=== PATIENT | female | born 1940 | race Caucasian/White ===

== ENCOUNTER 2024-11-16 10:10 | Outpatient (CLI) | payer MEDICARE, SELFPAY ==
--- NOTE | ~2024-11-16 | XR_ITS ---
3 VIEWS LUMBAR SPINE Ordering provider: Anyi Dasilva NP History: . M54.16 - Radiculopathy, lumbar region . Comparison: None. FINDINGS: VERTEBRAL BODIES:Compression fracture with loss of height of about 70% is seen in L1 which is most li ammy chronic. Postoperative changes at the level of L4-L5 with spondylolisthesis.. DISK SPACES: Narrowing of the disc spaces in the lower thoracic area. Narrowing of the disc L2-3 and L3-L4. Disc spacers seen at the level of L4-L5. SOFT TISSUES: Calcification in the left side of the pelvis is seen. Atherosclerotic changes of the ao rta. IMPRESSION: Compression fracture of L1 is most likely chronic. MRI evaluation advised. Spondylolisthesis at the level of L4-L5. Multilevel degenerative disc disease with disc spacer at the level of L4-L5. Reviewed, dictated and finalized at location A.
== END 2024-11-16 10:11 | disposition home or self-care (01) ==
LOC: GOSHIMG 10:11
PROVIDERS: PCP Nurse Practitioner; Visit Provider Nurse Practitioner
DX: M54.16 Radiculopathy, lumbar region (principal); M51.369 Other intervertebral disc degeneration, lumbar region without mention of lumbar back pain or lower extremity pain; S32.010A Wedge compression fracture of first lumbar vertebra, initial encounter for closed fracture; X58.XXXA Exposure to other specified factors, initial encounter
CPT/HCPCS: 72110

== ENCOUNTER 2024-11-16 10:44 | Outpatient (CLI) | payer MEDICARE, SELFPAY ==
--- OUTSIDE RECORDS SUMMARY | 2024-11-16 10:47 | XMS_ITS | Continuity of Care Document ---
Author Organization [facility] Address [address] [place] [address] Phone Care Team Providers Care Home Companion Name Role Phone Jorge L DELGADILLO MD, Sujit Unavailable Unavail able Allergies, Adverse Reactions, Alerts Substance Reaction Status Criticality No Known Allergies Active No Inform ation Procedures Procedure Date X-ray exam finger(s), minimum 2 views Office/outpatient visit,[facility] 2021 Thumb Spica Stephens OTS Advance Directives Directive Yes / No Effective Date File Name No Information Encounters Encounter Description Practice Location Reason(s) For Visit Diagnoses Date Provider Providers Copied on Encounter Office/outpa [facility]ient visit,[facility], [address], [place], [place], [id number], [place] tel:[phone] [facility] Right hand (chief complaint) Pain in right finger(s)Unila teral primary osteoarthritis of first carpometacarpa l joint, right hand 2 Jorge L Beckett. [address], [address], [place], [place], [id number], [place]. tel:[phone] Referring Provider: Austen Chowdary, [address], [place], [address]. tel:[phone] Family History Family Member Type Diagnosis Age At Onset Mother Problem (finding) Heart Disease Sister Problem (finding) Cancer, unknown Payers Payer name Insurance type Covered constitution party ID Authoriza tion(s) [facility] [place] [id number] Social History Type Description Quantity Date Captured Comments Alcohol Use Details Unknown Caffeine Use Details Unknown Tobacco Use Status No Information Smoking Status Never smoker Non-Smoking Tobacco Use Details : No Details Available : No Details Available Sex Female Vital Signs Date / Time: Height Weight BMI Pulse Rate Blood Pressure Temperature Respiratory Rate Body Surface Area Head Circumference Head Circ. Percentile Wt./Jamel. Percentile BMI percentile Pulse Ox Inhaled Ox 9:37 AM 63.00 in 55.792 kg (123.00 lbs) 21.7 9 kg/m bober (2) Chief Complaint And Reason For Visit From encounter dated '11/04/2021 09:35'. Right hand (chief complaint). Description: Arleen presents to the office today on November 04, 2021. She is here because of pain in the right hand. She reports that she has pain in the right hand, but the pain radiates into the right thumb and right wrist. The pain actually seems to localize to the base of the right thumb. Arleen does not recall any specific injury. She reports that the pain has been present for about 2 months. The pain is worse with activities such as opening cans or lifting things. Arleen does have a copper glove for her right hand. This seems to help some. Arleen tells me that she had a carpal tunnel release surgery in the right hand many years ago. She also tells me that she has arthritis in her hand. She describes her pain as aching and occasional. Arleen is here today for further evaluation and treatment of her right hand pain. Reason For Referral Reason For Referral No Information Plan Of Treatment Date Type Action Status Referral Ordered: X-ray exam finger(s), minimum 2 views RT thumb ordered History Of Present Illness Encounter Date Complaint History Of Prese nt Illness Right hand Arleen presents to the office today on November 04, 2021. She is here because of pain in the right hand. She reports that she has pain in the right hand, but the pain radiates into the right thumb and right wrist. The pain actually seems to localize to the base of the right thumb. Arleen does not recall any specific injury. She reports that the pain has been present for about 2 months. The pain is worse with activities such as opening cans or lifting things. Arleen does have a copper glove for her right hand. This seems to help some. Arleen tells me that she had a carpal tunnel release surgery in the right hand many years ago. She also tells me that she has arthritis in her hand. She describes her pain as aching and occasional. Arleen is here today for further evaluation and treatment of her right hand pain. Functional Status Date Functional Assessmen t No Information Instructions Date Instruction Additional Infor mation No Information Assessments Type Assessment Date assessment Pain in right finger(s) 022 assessment Unilateral primary o steoarthritis of first carpometacarpal joint, right hand impression I gave Arleen a Dunne ta Kaity Thumb Spica Splint today for the right thumb carpometacarpal joint osteoarthritis. I showed her how to apply the splint. I showed her that there were both flexible and rigid metal strips inside the splint, and she may add or remove the metal strips as desired for comfort and function. The purpose of the splint is to provide comfort, support, and protection over the next 6 weeks, and beyond as needed. The splint should improve function by immobilizing the carpometacarpal joint at the base of the thumb, minimizing bone on bone inflammation, thereby reducing pain and allowing for increased and improved use of the thumb and hand. Arleen will use the splint when she is experiencing pain in the right thumb, hand, or wrist, or when she is going to be participating in an activity that she expects to cause pain. The splint is provided as a permanent issue. Arleen may advance her activities as tolerated. She may follow up with me as needed. Arleen may also call with any questions or concerns Patient Care Teams Name Effective Dates (start - stop) Status Members No Information
--- OUTSIDE RECORDS SUMMARY | 2024-11-16 10:47 | XMS_ITS ---
Author Organization [facility] Address [address] [place] [address] Phone Care Team Providers Care Numerical Analysis Group Manager Name Role Phone Austen Munoz MD Primary Care Provider + Lory Aguillon MD Unavailable Active Problems Problem Noted Date Diagnosed Date Acute pain of left knee 08/02/2023 Mass of upper outer quadrant of left breast 06/10 Compression fracture of lumb ar vertebra with routine healing 04/24/2022 Age-related osteoporosis wit hout current pathological fracture 04/29/2020 Spinal stenosis of lumbar region 03/08/2017 Breast cancer 12/31/2010 Current Treatment and Therapy Plans No current plan information found. Past Treatment and Therapy Plans No past plan information found. Lifetime Dose Tracking * Chemical Lifetime Dose Automatic Entry Manual Entr y Fluoro Time 0.383 minutes 0.383 minutes 0 minutes Air kerma at the reference point (Ka,r) 2.66 mGy 2 .66 mGy 0 mGy Resolved Problems Problem Noted Date Diagnosed Date Resolved Date Body mass index (BMI) 23.0-23.9, adult 01/29/2017 04/17/2024
--- OUTSIDE RECORDS SUMMARY | 2024-11-16 10:47 | XMS_ITS | Encounter Summary ---
Author Organization [facility] Address [address] [place] [address] Care Team Providers Care Photo Machine Operator Name Role Phone Austen Munoz MD Primary Care Provider [phone] Edy Hart MD Unavailable [phone] Encounter Details Date Type Department Care Team (Late st Contact Info) Description 01/18/[address] 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 Gender Identity Not on file Sexual Orientation Not on file documented as of this encounter Plan of Treatment Not on file documented as of this encounter Procedures Procedure Name Priority Date/Time Associated Diagnosis Comments DERMATOPATHOLOGY Routine 01/17/2019 12:0 0 AM CDT documented in this encounter Results * DERMATOPATHOLOGY (01/17/2019 12:00 AM CDT) Case Report Dermatopathology Report Case: [id number] Authorizing Provider: Lance Silveira MD Collected: 01/17/2019 12:00 AM Ordering Location: [facility] DermPath Lab Received: 01/18/2019 12:53 PM Pathologist: Nina Patino MD Specimen: Skin, left superior forehead 12:24 PM CDT DERMATOPATHOLOGY LABORATORY Final Diagnosis Specimen A. SKIN, left superior forehead: BASAL CELL CARCINOMA, NODULAR TYPE (C44.319) NOT PRESENT AT SAMPLED MARGIN 12:24 PM CDT DERMATOPATHOLOGY LABORATORY at 1223 CDT Clinical History R/O BCC. 12:24 PM CDT DERMATOPATHOLOGY LABORATORY Gross Description Specimen A: Received is one formalin filled container labeled with the patient's name and designated left superior forehead. The specimen consists of a punch excision measuring [id number], bisected. The epidermal surface consists of a centrally located [id number] papule. The margin is inked green. Jar 0. 12:24 PM CDT DERMATOPATHOLOGY LABORATORY Microscopic Description Specimen A. SKIN, left superior forehead: Within the dermis there are aggregates of basaloid cells with a high nuclear to cytoplasmic ratio and peripheral palisading. This lesion is not present at the sampled margin of the specimen. 12:24 PM CDT DERMATOPATHOLOGY LABORATORY Disclaimer An external and internal positive and negative controls are appropriate for the histochemical, immunohistochemical and immunofluorescence stain(s) in this case (if any), except where stated explicitly. The performance characteristics of the stain(s) cited in this report were developed and its performance characteristic determined by the Dermatopathology Laboratory at [facility], directed by Dr. Elli Greco. These tests need not be, and therefore are not, approved by the [place] Food and Drug Administration. The tests are used for clinical purposes. Billing Codes Specimen Charges Stain Charges 24971 1 12:24 PM CDT DERMATOPATHOLOGY LABORATORY Embedded Images 12:24 PM CDT DERMATOPATHOLOGY LABORATORY Pathology/Cytolog y TISSUE SPECIMEN FROM SKIN / Unknown 01/17/2019 01/18/2019 12:53 PM CDT Lance Silveira MD LAB - PATHOLOGY/CYTOLOGY ORD ERABLES Final Result DERMATOPATHOLOGY LABORATORY [facility] - Department of Dermatology [address]th [place] [address], [facility] [phone] documented in this encounter Visit Diagnoses Not on filedocumented in this encounter Care Teams Photo Machine Operator Relationship Specialty Start Date End Date Austen Munoz MD [address] [facility] [address], [place] [id number] PCP - General 10/10/08 Edy Hart MD [address] [place] [address] Obstetrics and Gynecology 01/14/23 documented as of this encounter
--- OUTSIDE RECORDS SUMMARY | 2024-11-16 10:47 | XMS_ITS | Referral Summary ---
Author Organization [facility] Address [address] [place] [address] Phone Care Team Providers Care Mussel Opener Name Role Phone Austen Munoz MD Primary Care Provider + Lory Aguillon MD Unavailable Encounters Date Type Department Care Team Description 09/13/2024 Telephone [facility] Primary Care at [facility] [address], [place] [address] Austen Munoz MD from Last 3 Months Allergies No known active allergies Medications HYDROcodone-acet aminophen (NORCO) 5-325 mg per tabletIndication s:Pain Take 1 tablet by mouth every 6 (six) hours as needed for pain 30 tablet 10/15/2023 Active alendronate (FOSAMAX) 70 mg tablet Take 1 tablet (70 mg total) by mouth every 7 days 12 tablet 3 12/13/2023 Active Active Problems Problem Noted Date Diagnosed Date Acute pain of left knee 08/02/2023 Mass of upper outer quadrant of left breast 06/10 Compression fracture of lumb ar vertebra with routine healing 04/24/2022 Age-related osteoporosis wit hout current pathological fracture 04/29/2020 Spinal stenosis of lumbar region 03/08/2017 Breast cancer 12/31/2010 Resolved Problems Problem Noted Date Diagnosed Date Resolved Date Body mass index (BMI) 23.0-23.9, adult 01/29/2017 04/17/2024 Immunizations Immunization Administration Dates Next Due COVID-19 mRNA ([employer]) 0.3 m L (30 mcg) vaccine (12 years and up) 01/27/2023 Influenza, Quad, Adjuvantate d, Intramuscular 01/27/2023 Influenza, Quadrivalent, Hig h Dose, Preservative Free, Intrr 02/19/2022,02/11/2021,02/05/2020,03/02,02/10/2016 Influenza, Trivalent, High D ose, Split, Preservative Free, Intramuscular 02/07/2019,01/25/2018,03/02/2017,02/09 Influenza, Trivalent, IM (MDV) 4,02/22/2013,04/12/2012,01/16 Influenza, Trivalent, Preser vative Free, Intramuscular 02/25/2015 Influenza, Unspecified 02/25/2024,02/05/2020, alaTest SARS-CoV-2 Monovalent Vaccination (12+ Yrs) PURPLE 01/29/2021,09/08/2020,08/12/2020,07/28 Pneumococcal Conjugate PCV 13 03/08/2017 Pneumococcal Polysaccharide PPV23 03/28/2018,05/2006 Social History Tobacco Use Types Packs/Day Years Used Date Smoking Tobacco: Never Smokeless Tobacco: Never Tobacco Cessation:Counseling Given: Not Answered Alcohol Use Standard Drinks/Week Comments Yes 0 (1 standard drink = 0.6 oz pur e alcohol) AUDIT-C Answer Date Recorded Q1: How often do you have a drink containing alc ohol? Monthly or less 03/11/2022 Q2: How many drinks containi ng alcohol do you have on a typical day when you are drinking? 1 or 2 03/11/2022 Frequency of Binge Drinking Not on file 06/2021 PHQ-2 Answer Date Recorded PHQ-2 Total Score (If total score is 3 or more points, staff should administer the PHQ-9) 0 04/11/2024 Personal Safety Answer Date Recorded Have you ever been in or are you currently in a harmful physical or emotional relationship or is someone making you feel afraid or unsafe? Denies 07/29/2023 Comments Unknown Sex and Gender Information Value Date Recorded Sex Assigned at Not on file Legal Sex Female 3:56 AM ROLL TENSION TESTER Gender Identity Not on file Sexual Orientation Not on file Occupation Industry Job Start Date Job End Date retired Not on file Not on file Not on file Last Filed Vital Signs Vital Sign Reading Time Taken Comments Blood Pressure 102/70 04/17/2024 10:03 AM ROLL TENSION TESTER Pulse 100 04/17/2024 10:03 AM ROLL TENSION TESTER Temperature 36.7 C (98 F) 07/29/2023 9:56 AM CDT Respiratory Rate 18 07/29/2023 3:00 PM CDT Oxygen Saturation 97% 04/17/2024 10:03 AM ROLL TENSION TESTER Inhaled Oxygen Concentration - - Weight 49.4 kg (109 lb) 04/17/2024 10:03 AM ROLL TENSION TESTER Height 157.5 cm (5' 2) 04/17/2024 10:03 AM ROLL TENSION TESTER Body Mass Index 19.94 04/17/2024 10:03 AM ROLL TENSION TESTER Plan of Treatment Not on file Goals Goal Patient Goal Type Associated Problems Recent Progress Patient-Stated? Author CCM Chronic Pain Care Plan Chronic Care Management On track(2021 10:26 AM CDT) No Kelley Vazquez RN Note: Problem: Chronic Pain Goals: 1. Minimize further functional decline 2. Maximize quality of life 3. Control pain Strategies: - Activity/exercise program recommendation - Conservative stepwise pain medicine strategy with multi-disciplinary approach - Recommend healthy lifestyle strategies and compensatory methods as needed Procedures Procedure Name Priority Date/Time Associated Diagnosis Comments DEXA AXIAL SKELETON BONE DENSITY 1 OR MORE SITES Schedule Routine, Read Routine (OP Routine) 06/01/2023 from Last 3 Months or Most Recently Relevant to Health Maintenance Results * Dexa Axial Skeleton Bone Density 1 or 2 Site (06/01/2023) Anatomical Region Laterality Modality Body N/A Radiographic Sindy ging Historical Provider MD [facility]WK DXA PROCEDURES Final Result from Last 3 Months or Most Recently Relevant to Health Maintenance Insurance Member Subscriber Plan / Payer ( fective 2019-Present) Name:Arleen Hernandez Relation to Subscriber:Self Name:Arleen Hernandez Payer ID:[id number] (NAIC) Type:MEDICARE RISK OTHER Address: [address] [place] [id number] Advance Directives For more information, please contact: [phone] Documents on File Type Date Recorded Patient [address] Magistrate Expl anation ADVANCE DIRECTIVE 01/18/2017 Advance Di rective Checklist Care Teams Mussel Opener Relationship Specialty Start Date End Date Austen Munoz MD [address] [address] PCP - General 02/10/16 Lory Aguillon MD [address] [address] Anesthesiologist Pain Management 02/04/22
--- OUTSIDE RECORDS SUMMARY | 2024-11-16 10:47 | XMS_ITS | Clinical Summary ---
Author Organization [facility] Address [address] [place] [address] Phone Care Team Providers Care Conveyor Attendant Name Role Phone Austen Munoz MD Primary Care Provider + Lory Aguillon MD Unavailable Allergies No known active allergies Medications HYDROcodone-acet [...] mass index (BMI) 23.0-23.9, adult 01/29/2017 04/17/2024 Encounters Date Type Department Care Team Description 09/13/2024 Telephone [facility] Primary Care at [facility] [address] [address] Austen Munoz MD from Last 3 Months Immunizations Immunization Administration Dates Next Due COVID-19 mRNA ([employer]) 0.3 m L (30 mcg) vaccine (12 years and up) 01/27/2023 Influenza, Quad, Adjuvantate d, Intramuscular 01/27/2023 Influenza, Quadrivalent, Hig h Dose, Preservative Free, Intrr 02/19/2022,02/11/2021,02/05/2020,03/02,02/10/2016 Influenza, Trivalent, High D ose, Split, Preservative Free, Intramuscular 02/07/2019,01/25/2018,03/02/2017,02/09 Influenza, Trivalent, IM (MDV) 4,02/22/2013,04/12/2012,01/16 Influenza, Trivalent, Preser vative Free, Intramuscular 02/25/2015 Influenza, Unspecified 02/25/2024,02/05/2020, Pfizer SARS-CoV-2 Monovalent Vaccination (12+ Yrs) PURPLE 01/29/2021,09/08/2020,08/12/2020,07/28 Pneumococcal Conjugate PCV 13 03/08/2017 Pneumococcal Polysaccharide PPV23 03/28/2018,05/2006 Surgical History Surgery Date Site/Laterality Comments BACK SURGERY 06/10/2016 N/A Spinal repair BREAST LUMPECTOMY COLONOSCOPY SKIN CANCER EXCISION DILATION AND CURETTAGE OF UTERUS Medical History Medical History Date Comments Superficial basal cell carcinoma Cancer, basal Cell; Comments: RRG 05/30/2015 - Malignant neoplasm of female breast (HCC) Cancer, breast; Comments: RRG 05/30/2015 - Spinal stenosis of lumbar region Arthritis Family History Medical History Relation Name Comments Coronary artery disease Mother Consuelo nary artery disease, premature; Hypertension Mother Hypertension; Hypertension Sister Relation Name Status Comments Mother Sister Alive Social History Tobacco Use Types Packs/Day Years [...] on file Legal Sex Female 3:56 AM ABSTRACT CLERK Gender Identity Not on file Sexual Orientation Not on file Occupation Industry Job Start Date Job End Date retired Not on file Not on file Not on file Obstetrics History Last Filed Vital Signs Vital Sign Reading Time Taken Comments Blood Pressure 102/70 04/17/2024 10:03 AM ABSTRACT CLERK Pulse 100 04/17/2024 10:03 AM ABSTRACT CLERK Temperature 36.7 C (98 F) 07/29/2023 9:56 AM CDT Respiratory Rate 18 07/29/2023 3:00 PM CDT Oxygen Saturation 97% 04/17/2024 10:03 AM ABSTRACT CLERK Inhaled Oxygen Concentration - - Weight 49.4 kg (109 lb) 04/17/2024 10:03 AM ABSTRACT CLERK Height 157.5 cm (5' 2) 04/17/2024 10:03 AM ABSTRACT CLERK Body Mass Index 19.94 04/17/2024 10:03 AM ABSTRACT CLERK Plan of Treatment Health Maintenance Due Date Last Done Comments DTaP/Tdap/Td Vaccine (1 - Tdap) 1951 Zoster Vaccine (1 of 2) 12/09/1991 Covid-19 Vaccine (2023-2 5 season) 2024 01/27/2023, 02/19/2022, 02/24/2021, Additional history exists Influenza Vaccine (#1) 2025 , 01/27/2023, 02/19/2022, Additional history exists Depression Screening 04/17/2025 04/17/2024, 04/12/2023, 03/04/2023, Additional history exists Fall Risk Assessment 04/17/2025 04/17/2024, 04/12/2023, 03/04/2023, Additional history exists Well Visit 65+ 04/17/2025 04/17/2024, 08/2022, 04/09/2022, Additional history exists Osteoporosis Screening-Bone Density Scan 06/01/2025 06/01/2023, 05/04/2023, 04/30/2023, Additional history exists Pneumococcal vaccine 65+ Completed 018, 03/08/2017, 05/10/2006 Hepatitis B Screening Completed 04/17/2024 Goals Goal Patient Goal Type Associated Problems Recent Progress Patient-Stated? Author CCM Chronic Pain Care Plan Chronic Care Management On track(2021 10:26 AM CDT) Kelley Macario RN Note: Problem: Chronic Pain Goals: 1. [...] Most Recently Relevant to Health Maintenance Insurance [facility] Advance Directives For more information, please contact: [phone] Documents on File Type Date Recorded Patient Aquatics Assistant Department Head Expl anation ADVANCE DIRECTIVE 01/18/2017 Advance Di rective Checklist Care Teams Conveyor Attendant Relationship Specialty Start Date End Date uAsten Munoz MD [address] [phone] PCP - General 02/10/16 Lory Aguillon MD [address] [phone] Anesthesiologist Pain Management 02/04/22
--- OUTSIDE RECORDS SUMMARY | 2024-11-16 10:47 | XMS_ITS | Clinical Summary ---
Author Organization [facility] Address [address] [place] [address] Care Team Providers Care Hot Tar Roofer Name Role Phone Austen Munoz MD Primary Care Provider [phone] Edy Hart MD Unavailable [phone] Source Comments [facility],non-owned Affiliates and Associated Physician Practices is amultiple site organization consisting of ambulatory clinics and hospital sitesin [place], [place], [place] and [place]. This disclosure is being madepursuant to the Care Everywhere program and may not contain all information available regarding this patient. Last updated 18.[facility] Allergies No known active allergies Medications * Be aware that medications may not be up to date on this document. Alwaysverify current medications with the patient. vitamin D, ergocalciferol, (Drisdol) 1.25 MG (20869 UT) capsuleIndication s:Other osteoporosis without current pathological fracture Take 1 (one) capsule by mouth every 7 days 13 capsule 1 2 Active MAGNESIUM PO Active Cyanocobalamin (VITAMIN B-12 PO) Ac tive POTASSIUM PO Active multivitamin daily tablet Take 1 (one) tablet by mouth daily with food Active alendronate (Fosamax) 70 MG tabletIndications :Other osteoporosis without current pathological fracture TAKE 1 TABLET BY MOUTH EVERY 7 DAYS ON AN EMPTY STOMACH WITH WATER WHILE SITTING UPRIGHT FO 30 MIN IN THE MORNING 12 tablet 4 3 Active Active Problems Problem Noted Date Diagnosed Date Mass of upper outer quadrant of left breast 02/1 11/2022 Compression fracture of lumb ar vertebra with routine healing 04/24/2022 Other osteoporosis without current pathological fracture 02/14/2020 Personal history of breast cancer 12/31/2010 Immunizations Immunization Administration Dates Next Due INFLUENZA VACCINE, TRIV. (AF LURIA, FLUZONE TRIVALENT; 6MO+) (IIV3) 01/16/2011 INFLUENZA VACCINE 02/22/2013 INFLUENZA VACCINE, HIGH-DOSE , QUADR. (FLUZONE HIGH-DOSE QUADRIVALENT; 65Y+), 0.7 ML (HD-IIV4) 03/02/2017,02/10/2016 PNEUMOCOCCAL PPSV23 05/10/2006 Pneumococcal Pcv13 Conj 03/08/2017 Family History Medical History Relation Name Comments Cancer - Breast Maternal Aunt Cancer - Breast Other cousin Relation Name Status Comments Maternal Aunt Other cousin Alive Social History Tobacco Use Types Packs/Day Years Used Date Smoking Tobacco: Never Smokeless Tobacco: Never Alcohol Use Standard Drinks/Week Comments Yes 0 (1 standard drink = 0.6 oz pur e alcohol) social PHQ-2 Answer Date Recorded PHQ2 TOTAL SCORE 0 05/28/2022 Comments No Sex and Gender Information Value Date Recorded Sex Assigned at Not on file Legal Sex Female 6:43 AM METAL TRIM ERECTOR Gender Identity Not on file Sexual Orientation Not on file Last Filed Vital Signs Vital Sign Reading Time Taken Comments Blood Pressure 110/64 05/28/2022 1:56 PM METAL TRIM ERECTOR Pulse - - Temperature - - Respiratory Rate - - Oxygen Saturation - - Inhaled Oxygen Concentration - - Weight 52.2 kg (115 lb) 06/24/2022 12:55 PM METAL TRIM ERECTOR Height 160 cm (5' 3) 06/24/2022 12:55 PM METAL TRIM ERECTOR Body Mass Index 20.37 06/24/2022 12:55 PM METAL TRIM ERECTOR Plan of Treatment Health Maintenance Due Date Last Done Comments MEDICARE AWV 12 MONTHS 1941 DTAP/TDAP/TD VACCINES (1 - Tdap) 1960 ZOSTER VACCINE (1 of 2) 12/09/1991 Respiratory Syncytial Virus (RSV) Vaccine Pt: or over 60 yrs (1 - 1-dose 75+ series) 2016 PNEUMOCOCCAL VACCINE 50+ (3 of 3 - PCV20 or PCV21) 03/08/2022 03/08/2017, 05/10/2006 COVID-19 VACCINE ( season) 2024 01/29/2021, 09/08/2020, 08/12/2020, Additional history exists DEPRESSION SCREENING 05/10/2024 05/28/2022, 04/24/20 INFLUENZA VACCINE (#1) 2025 , 02/07/2019, 01/26/2018, Additional history exists BONE DENSITY TESTING Completed 04/30/2023, 01/29/20 HEPATITIS B VACCINE Aged Out No longe r eligible based on patient's age to complete this topic HIB VACCINE Aged Out No longer eligi ble based on patient's age to complete this topic HPV VACCINE Aged Out No longer eligi ble based on patient's age to complete this topic MENINGOCOCCAL (Group B) VACCINE SHARED DECISION-MAKING Aged Out No longer eligible based on patient's age to complete this topic MENINGOCOCCAL GROUPS A/C/Y/W VACCINE Aged Out No longer eligible based on patient's age to complete this topic Procedures Procedure Name Priority Date/Time Associated Diagnosis Comments DEXA BONE DENSITY AXIAL SKELETON Routine 04/30/2023 1:02 PM METAL TRIM ERECTOR Age-related osteoporosis without current pathological fracture from Last 3 Months or Most Recently Relevant to Health Maintenance Results * DEXA BONE DENSITY AXIAL SKELETON (04/30/2023 1:02 PM METAL TRIM ERECTOR) Anatomical Region Laterality Modality Nuclear Medicine 04/30/2023 3:03 PM METAL TRIM ERECTOR Impressions 04/30/2023 3:05 PM METAL TRIM ERECTOR IMPRESSION: WHO category: Osteoporosis WORLD HEALTH ORGANIZATION DEFINITIONS NORMAL= T-Score at or above -1.0 SD OSTEOPENIA = T-Score between -1 and -2.5 SD OSTEOPOROSIS = T-Score at or below -2.5 SD > Interpreting Provider: Ro Barclay DO on 04/30/2023 3:05 PM Narrative 04/30/2023 3:05 PM METAL TRIM ERECTOR PROCEDURE: DEXA BONE DENSITY AXIAL SKELETON DATE/TIME OF EXAM: 04/30/2023 1:03 PM CLINICAL INFORMATION: None relevant/not provided if blank. Indication: M81.0: Age-related osteoporosis without current pathological fracture COMPARISON: DEXA dated 01/19/2020 INDICATION: 82-year-old for osteoporosis screening with hardware in the lumbar spine. FINDINGS: The mean bone mineral content of the left femoral neck is 0.607 g/cm2 and T-score is -3.1. The mean bone mineral content of the left total hip is 0.594 g/cm2 and T-score is -3.3. The mean bone mineral content of the right femoral neck is 0.685 g/cm2 and T-score is -2.5. The mean bone mineral content of the right total hip is 0.647 g/cm2 and T-score is -2.9. FRAX 10 year fracture risk Major osteoporotic fracture: 20.6% Hip fracture: 7.8% Procedure Note Ro Barclay DO - 06/01/2023 PROCEDURE: DEXA BONE DENSITY AXIAL SKELETON DATE/TIME OF EXAM: 04/30/2023 1:03 PM CLINICAL INFORMATION: None relevant/not provided if blank. Indication: M81.0: Age-related osteoporosis without current pathological fracture COMPARISON: DEXA dated 01/19/2020 INDICATION: 82-year-old for osteoporosis screening with hardware in the lumbar spine. FINDINGS: The mean bone mineral content of the left femoral neck is 0.607 g/cm2and T-score is -3.1. The mean bone mineral content of the left total hip is 0.594 g/cm2 and T-score is -3.3. The mean bone mineral content of the right femoral neck is 0.685 g/cm2and T-score is -2.5. The mean bone mineral content of the right total hip is 0.647 g/cm2 and T-score is -2.9. FRAX 10 year fracture risk Major osteoporotic fracture: 20.6% Hip fracture: 7.8% IMPRESSION: WHO category: Osteoporosis WORLD HEALTH ORGANIZATION DEFINITIONS NORMAL= T-Score at or above -1.0 SD OSTEOPENIA = T-Score between -1 and -2.5 SD OSTEOPOROSIS = T-Score at or below -2.5 SD > Interpreting Provider: Ro Barclay DO on 04/30/2023 3:05 PM us Austen Munoz MD DEXA ORDERABLES Edited Re sult - Final from Last 3 Months or Most Recently Relevant to Health Maintenance Insurance [facility] MEDICARE MEDICARE Care Teams Hot Tar Roofer Relationship Specialty Start Date End Date Austen Munoz MD [address] [place] [address] PCP - General 10/10/08 Edy Hart MD [address] [place] [address] (work) Obstetrics and Gynecology 01/14/23
--- OUTSIDE RECORDS SUMMARY | 2024-11-16 10:47 | XMS_ITS | Encounter Summary ---
Author Organization [facility] Healthcare Address [address] [place] [address] Care Team Providers Care Public Works Technician Name Role Phone Austen Munoz MD Primary Care Provider + Lory Aguillon MD Unavailable Amanda Ponce MA Unavailable [phone] Reason for Visit * Reason Onset Date Comments Pre Arrival 03/09/2022 Encounter Details Date Type Department Care Team (Late st Contact Info) Description 03/09/2022 Telephone [facility] [address] [facility] 1st [place] [address] Cass Navarro, FABIO Pre Arrival Social History Tobacco Use Types Packs/Day Years [...] points, staff should administer the PHQ-9) 0 04/09/2021 Comments Unknown Sex and Gender Information Value Date Recorded Sex Assigned at Not on file Legal Sex Female 3:56 AM LOADING UNIT OPERATOR POWDER CHARGING Gender Identity Not on file Sexual Orientation Not on file Occupation Industry Job Start Date Job End Date retired Not on file Not on file Not on file documented as of this encounter Functional Status documented as of this encounter Plan of Treatment Not on file documented as of this encounter Goals Goal Patient Goal Type Associated Problems [...] lifestyle strategies and compensatory methods as needed documented as of this encounter Visit Diagnoses Not on filedocumented in this encounter Care Teams Public Works Technician Relationship Specialty Start Date End Date Austen Munoz MD [address] [address] PCP - General 02/10/16 Lory Aguillon MD [address] [address] Anesthesiologist Pain Management 02/04/22 Amanda Ponce MA [address] [place] [address] [address] [place] [address] ACO Care Partner Integration Planner 07/30/23 07/30/23 documented as of this encounter
--- OUTSIDE RECORDS SUMMARY | 2024-11-16 10:47 | XMS_ITS | Encounter Summary ---
Author Organization [facility] Address [address] [facility] [place] [address] Care Team Providers Care Occupational Medicine Officer Name Role Phone Austen Munoz MD Primary Care Provider [phone] Edy Hart MD Unavailable [phone] Encounter Details Date Type Department Care Team (Late st Contact Info) Description 04/06/2018 Lab Requisition [facility] [address] [place] [id number] Lance Silveira MD [address] [place] [address] Social History Tobacco Use Types Packs/Day Years Used Date Smoking Tobacco: Never Smokeless Tobacco: Never Alcohol Use Standard Drinks/Week Comments Yes 0 (1 standard drink = 0.6 oz pur e alcohol) social Comments No Sex and Gender Information Value Date Recorded Sex Assigned at Not on file Legal Sex Female 6:43 AM PEDIATRIC ONCOLOGIST Gender Identity Not on file Sexual Orientation Not on file documented as of this encounter Plan of Treatment Not on file documented as of this encounter Procedures Procedure Name Priority Date/Time Associated Diagnosis Comments DERMATOPATHOLOGY Routine 04/05/2018 12:0 0 AM PEDIATRIC ONCOLOGIST documented in this encounter Results * DERMATOPATHOLOGY (04/05/2018 12:00 AM PEDIATRIC ONCOLOGIST) Case Report Dermatopathology Report Case: [id number] Authorizing Provider: Lance Silveira MD Collected: 04/05/2018 12:00 AM Pathologist: Bill Greco MD Received: 04/06/2018 11:38 AM Specimen: Skin, glabella 8 5:26 PM [facility] Final Diagnosis Specimen A. SKIN, glabella: BASAL CELL CARCINOMA, NODULAR TYPE (C44.319) 8 5:26 PM [facility] at [address] [facility] Clinical History R/O BCC. 8 5:26 PM [facility] Gross Description Specimen A: Received is one formalin filled container labeled with the patient's name and designated glabella. The specimen consists of a shave biopsy measuring [id number]. Jar 0. 8 5:26 PM [facility] Microscopic Description Specimen A. SKIN, glabella: Within the dermis there are aggregates of basaloid cells with a high nuclear to cytoplasmic ratio and peripheral palisading. 8 5:26 PM [facility] Disclaimer An external and internal positive and negative controls are appropriate for the histochemical, immunohistochemical and immunofluorescence stain(s) in this case (if any), except where stated explicitly. The performance characteristics of the stain(s) cited in this report were developed and its performance characteristic determined by the Dermatopathology Laboratory at [facility]. These tests need not be, and therefore are not, approved by the [place] Food and Drug Administration. The tests are used for clinical purposes. Billing Codes Specimen Charges Stain Charges 90994 1 8 5:26 PM [facility] Embedded Images 8 5:26 PM [facility] Pathology/Cytolog y TISSUE SPECIMEN FROM SKIN / Unknown 04/05/2018 04/06/2018 11:38 AM [facility] us Lance Silveira MD LAB - PATHOLOGY/CYTOLOGY ORD ERABLES Final Result DERMATOPATHOLOGY LABORATORY [facility] - Department of Dermatology [address] [place] [address], 5th [place] [address], [place] [phone] documented in this encounter Visit Diagnoses Not on filedocumented in this encounter Care Teams Occupational Medicine Officer Relationship Specialty Start Date End Date Austen Munoz MD [address] [facility] [address], [place] [id number] PCP - General 10/10/08 Edy Hart MD [address] [facility] [address] [place] [address] Obstetrics and Gynecology 01/14/23 documented as of this encounter
[2024-11-16 19:06] LABS: Anion Gap 7 mmol/L (4-12); Blood Urea Nitrogen 23 mg/dL (7-17); Calcium 9.1 mg/dL (8.4-10.2); Carbon Dioxide 29 mmol/L (22-30); Chloride 104 mmol/L (98-107); Estimated Glomerular Filt Rate > 60; Glucose 89 mg/dL (65-110); Potassium 4.4 mmol/L (3.4-5.0); Sodium 140 mmol/L (137-145)
[2024-11-16 22:15] LABS: Vitamin B12 > 1000.0 pg/mL (239-931)
== END 2024-11-16 10:45 | disposition home or self-care (01) ==
LOC: ANHGOSHLAB 10:45
PROVIDERS: PCP Nurse Practitioner; Visit Provider Clinical Nurse Specialist
DX: M81.0 Age-related osteoporosis without current pathological fracture (principal)
CPT/HCPCS: 36415; 80048; 82607

== ENCOUNTER 2024-12-01 10:06 | Outpatient (CLI) | payer MEDICARE, SELFPAY ==
--- NOTE | ~2024-12-01 | MR_ITS ---
EXAMINATION: MR lumbar spine wo con DATE: 12/01/2024 10:50 INDICATION: Lumbar radiculopathy TECHNIQUE: Magnetic resonance imaging (MRI) of the lumbar spine was performed without intravenous con trast. Sequences included sagittal T2-weighted FSE, sagittal T2-weighted FS FSE, sagittal T1-weighted FSE, and axial T2-weighted FSE. COMPARISON: None FINDINGS: 1.2 cm anterolisthesis L4 on L5. L5 laminectomy. There is magnetic metallic field artifact associated with an interbody fusion device at the L4-L5 disc space which is moderately narrowed but without mindi dent solid osseous bridging. There is associated L4-L5 instrumented posterior spinal fusion with faith tional metallic magnetic field artifact associated with bilateral vertical angel and pedicle screw fixa tion. L1 burst fracture with vertebral plana anteriorly, and 20% posterior vertebral body height loss with 8 mm retropulsion at the cephalad aspect of the posterior wall. There is minimal associated inc reased marrow T2 signal suggesting this is subacute to chronic. Severe disc height loss with fibrovas cular degenerative endplate changes at T9-T10. Moderate disc height loss at T10-T11 and L3-L4. Mild d isc height loss at T11-T12, on the right at T12-L1 and at T2-3. Marrow signal is otherwise normal. Th e conus medullaris terminates at L2-L3. The filum terminale is unremarkable. On sagittal images there is central increased T2 signal in the cord at level T9 and T10. Paravertebral soft tissues are unrem arkable. The following disc levels are specifically discussed: T11-T12: Disc is minimally bulging. There is mild bilateral facet joint osteoarthritis. There is no n eural foraminal stenosis. There is no central canal stenosis. T12-L1: The disc does not extend beyond the more posterior retropulsed L1 superior endplate margin Th ere is moderate bilateral facet joint osteoarthritis. There is mild bilateral neural foraminal stenos is. There is mild to moderate central canal stenosis with indentation of the ventral surface of the c ord, more prominent on the left.. L1-L2: Annular fissure with broad-based disc extrusion extending from foraminal zone to foraminal zon e with disc material extending couple millimeter caudal to the level of the superior endplate of L2. There is mild right and moderate to severe left facet joint osteoarthritis. There is mild right and m oderate left neural foraminal stenosis. There is mild central canal stenosis. L2-L3: Disc is mildly bulging with superimposed annular fissures and bilateral foraminal zone disc pr otrusions. There is moderate bilateral facet joint osteoarthritis. There is moderate bilateral, right greater than left neural foraminal stenosis. There is mild central canal stenosis. L3-L4: Disc is bulging. There is hypertrophy of the ligamentum flavum. There is severe right and mode rate left facet joint osteoarthritis. There is moderate bilateral, right greater than left neural for aminal stenosis. There is mild central canal stenosis. L4-L5: Attempted anterior spinal fusion with remaining disc material not extending beyond the more po sterior L5 superior endplate margin. There is also been posterior spinal fusion.. There is moderate r ight and mild left neural foraminal stenosis. There is mild central canal stenosis at the cephalad at the level of the inferior aspect of the L4 vertebral body with more no stenosis at the level of the disc space where there is been prior posterior decompression. L5-S1: The disc does not extend beyond the endplate margin. There is severe bilateral facet joint ost eoarthritis. There is no neural foraminal stenosis. There is no central canal stenosis. IMPRESSION: 1. Moderate lumbar spondylosis with 2 mm anterolisthesis L4 on L5 with combined instrumented anterior and posterior spinal fusion at this level. 2. Likely subacute to chronic L1 burst fracture with severe anterior to central vertebral body height loss and with 8 mm retropulsion contributing to mild to moderate central canal stenosis at this leve l. 3. Conus terminates more caudally than typical at L2-L3 but with normal-appearing filum terminale and this may result from a combination of the vertebral body height loss at L1 and the spondylolisthesis at L4-L5. 4. Nonspecific increased cord signal in the lower thoracic cord at the level of T9 and T10. Could con white shoe ragger further evaluation of the more cephalad thoracic spine with pre and postcontrast MRI. Reviewed, dictated and finalized at location A. IMPRESSION: 1. Moderate lumbar spondylosis with 2 mm anterolisthesis L4 on L5 with combined instrumented anterior and posterior spinal fusion at this level. 2. Likely subacute to chronic L1 burst fracture with severe anterior to central vertebral body height loss and with 8 mm retropulsion contributing to mild to moderate central canal stenosis at this level. 3. Conus terminates more caudally than typical at L2-L3 but with normal-appeari ng filum terminale and this may result from a combination of the vertebral body height loss at L1 and the spondylolisthesis at L4-L5. 4. Nonspecific increased cord signal in the lower thoracic cord at the level of T9 and T10. Could consider further evaluation of the more cephalad thoracic sp ine with pre and postcontrast MRI.
== END 2024-12-01 10:07 | disposition home or self-care (01) ==
LOC: GOSHIMG 10:07
PROVIDERS: PCP Nurse Practitioner; Visit Provider Nurse Practitioner
DX: M47.26 Other spondylosis with radiculopathy, lumbar region (principal)
CPT/HCPCS: 72148

== ENCOUNTER 2025-02-19 11:42 | Outpatient (CLI) | payer MEDICARE, SELFPAY ==
--- OUTSIDE RECORDS SUMMARY | 2025-02-19 12:57 | XMS_ITS | Clinical Summary ---
Author Organization [facility] Address [facility] [place] [address] Care Team Providers Care Oil Recovery Operator Name Role Phone Anyi Dasilva APRN Primary Care Provider [phone] Encounters Date Type Department Care Team Description 12/25/2024 1:45 PM CDT - 12/25/2024 11:59 PM CDT Hospital Encounter [facility] [place] [address] Anyi Dasilva APRN Discharge Disposition: Home or Self Care (Routine Discharge) 12/25/2024 Travel from Last 3 Months Social History Tobacco Use Types Packs/Day Years Used Date Smoking Tobacco: Never Assessed Comments Unknown Sex and Gender Information Value Date Recorded Sex Assigned at Female 12/25/2024 1:41 PM CDT Legal Sex Female 9:08 AM CDT Gender Identity Not on file Sexual Orientation Not on file Plan of Treatment Health Maintenance Due Date Last Done Comments DTaP, Tdap and Td Vaccines (1 - Tdap) 1960 Zoster Vaccines (1 of 2) 12/09/1991 Annual Medicare Wellness Visit 2006 COVID-19 Vaccine ( season) 2025 01/27/2023, 02/19/2022, 02/24/2021, Additional history exists Influenza Adult (#1) 2025 02/25/2024, 02/19/2022, 02/11/2021, Additional history exists Pneumococcal Vaccine: 50+ Years Completed 03/28/2018, 03/08/2017, 05/10/2006 Dexa Scan (General) Completed 06/01/2023, 04/30/2023, 04/30/2023, Additional history exists RSV Immunization or 60+ Years Completed 09/11/2024 Meningococcal B Vaccine Aged Out No l onger eligible based on patient's age to complete this topic Meningococcal Vaccine Aged Out No jalen katherine eligible based on patient's age to complete this topic RSV Immunizations Under 20 Months Aged Out No longer eligible based on patient's age to complete this topic Procedures Procedure Name Priority Date/Time Associated Diagnosis Comments MRI THOR SPINE WWO CON Routine 12/25/2024 2:53 PM CDT Abnormal findings on diagnostic imaging of musculoskeletal system from Last 3 Months Results * MRI THOR SPINE WWO CON (12/25/2024 2:53 PM CDT) Anatomical Region Laterality Modality Spine Magnetic Resonan ce 12/31/2024 4:39 PM CDT Impressions 12/31/2024 4:44 PM CDT IMPRESSION: 1. Chronic appearing L1 burst fracture with near complete loss of anterior vertebral body height and 9 mm retropulsion. Resultant moderate canal stenosis at T12-L1 with partial effacement of the thecal sac and flattening of the subjacent cord. 2. Multilevel degenerative changes in the thoracic and partially imaged cervical spine as detailed above. Referred By: ANYI DASILVA Interpreted By: Saulo Baugh MD, 12/31/2024 4:39 PM Narrative 12/31/2024 4:[address] PM [address]T [address] [address] INDICATION: Back pain with right-sided sciatica EXAMINATION: MRI of the thoracic spine without and with contrast. TECHNIQUE: Multiplanar and multisequence MRI images of the thoracic spine were were obtained before and after uneventful intravenous administration of 10 mL Dotarem. COMPARISON: Report from outside lumbar spine CT 02/14/2022, images not available for direct comparison FINDINGS: K9 Handler localizer images were obtained from the craniocervical junction through the lower thoracic spine for the purposes of vertebral body numbering. Partially imaged degenerative changes in the cervical spine. There is a chronic appearing L1 burst fracture with near complete loss of anterior vertebral body height and prominent 9 mm retropulsion. Otherwise the thoracic vertebral alignment, vertebral body heights, and facet alignment are maintained. Multilevel degenerative changes are evident in the thoracic spine with disc degeneration, endplate osteophytes, and facet hypertrophy noted. Multilevel disc desiccation. Scattered Schmorl's nodes noted along the endplates. No definite abnormal signal or enhancement identified in the thoracic cord, though assessment is somewhat degraded by motion and artifact. Imaged portions of the soft tissues reveal numerous small hepatic and renal cysts. C7-T1: Mild disc bulge. Facet hypertrophy. No significant canal or foraminal narrowing. T1-T2: Facet hypertrophy. No significant canal or foraminal narrowing. T2-T3: Facet hypertrophy. No significant canal or foraminal narrowing. T3-T4: Facet hypertrophy. No significant canal or foraminal narrowing. T4-T5: Facet hypertrophy. No significant canal or foraminal narrowing. T5-T6: Facet hypertrophy. No significant canal or foraminal narrowing. T6-T7: Facet hypertrophy. No significant canal or foraminal narrowing. T7-T8: Tiny disc bulge. Facet hypertrophy. No canal or foraminal narrowing. T8-T9: Mild disc bulge and small left paracentral protrusion. Flattening of the ventral thecal sac. Facet hypertrophy. No foraminal narrowing. T9-T10: Mild disc bulge with extension into the foramina. Facet hypertrophy. Flattening of the ventral thecal sac. Mild to moderate left foraminal narrowing. T10-T11: Mild disc bulge. Facet hypertrophy. Flattening of the ventral and dorsolateral thecal sac. No foraminal narrowing. T11-T12: Mild disc bulge. Facet hypertrophy. Flattening of the right dorsolateral thecal sac. Foramina patent. T12-L1: Retropulsion of L1. Disc uncovering. Facet hypertrophy. Moderate canal stenosis with partial effacement of the thecal sac and flattening of the subjacent cord. Mild left foraminal narrowing. Procedure Note Saulo Baugh MD - 12/31/2024 [address] [place], [place] [address] INDICATION: Back pain with right-sided sciatica EXAMINATION: MRI of the thoracic spine without and with contrast. TECHNIQUE: Multiplanar and multisequence MRI images of the thoracic spinewere were obtained before and after uneventful intravenous administrationof 10 mL Dotarem. COMPARISON: Report from outside lumbar spine CT 02/14/2022, images not available fordirect comparison FINDINGS: K9 Handler localizer images were obtained from the craniocervical junctionthrough the lower thoracic spine for the purposes of vertebral bodynumbering. Partially imaged degenerative changes in the cervical spine. There is a chronic appearing L1 burst fracture with near complete loss ofanterior vertebral body height and prominent 9 mm retropulsion. Otherwisethe thoracic vertebral alignment, vertebral body heights, and facetalignment are maintained. Multilevel degenerative changes are evident inthe thoracic spine with disc degeneration, endplate osteophytes, and facethypertrophy noted. Multilevel disc desiccation. Scattered Schmorl's nodesnoted along the endplates. No definite abnormal signal or enhancementidentified in the thoracic cord, though assessment is somewhat degraded bymotion and artifact. Imaged portions of the soft tissues reveal numerous small hepatic andrenal cysts. C7-T1: Mild disc bulge. Facet hypertrophy. No significant canal orforaminal narrowing. T1-T2: Facet hypertrophy. No significant canal or foraminal narrowing. T2-T3: Facet hypertrophy. No significant canal or foraminal narrowing. T3-T4: Facet hypertrophy. No significant canal or foraminal narrowing. T4-T5: Facet hypertrophy. No significant canal or foraminal narrowing. T5-T6: Facet hypertrophy. No significant canal or foraminal narrowing. T6-T7: Facet hypertrophy. No significant canal or foraminal narrowing. T7-T8: Tiny disc bulge. Facet hypertrophy. No canal or foraminalnarrowing. T8-T9: Mild disc bulge and small left paracentral protrusion. Flatteningof the ventral thecal sac. Facet hypertrophy. No foraminal narrowing. T9-T10: Mild disc bulge with extension into the foramina. Facethypertrophy. Flattening of the ventral thecal sac. Mild to moderate leftforaminal narrowing. T10-T11: Mild disc bulge. Facet hypertrophy. Flattening of the ventral anddorsolateral thecal sac. No foraminal narrowing. T11-T12: Mild disc bulge. Facet hypertrophy. Flattening of the rightdorsolateral thecal sac. Foramina patent. T12-L1: Retropulsion of L1. Disc uncovering. Facet hypertrophy. Moderatecanal stenosis with partial effacement of the thecal sac and flattening ofthe subjacent cord. Mild left foraminal narrowing. IMPRESSION: 1. Chronic appearing L1 burst fracture with near complete loss of anteriorvertebral body height and 9 mm retropulsion. Resultant moderate canalstenosis at T12-L1 with partial effacement of the thecal sac andflattening of the subjacent cord. 2. Multilevel degenerative changes in the thoracic and partially imagedcervical spine as detailed above. Referred By: ANYI DASILVA Interpreted By: Saulo Baugh MD, 12/31/2024 4:39 PM Anyi Dasilva APRN MRI Final Result from Last 3 Months Insurance MEDICARE Care Teams Oil Recovery Operator Relationship Specialty Start Date End Date Anyi Dasilva APRN [address] [place] [address] PCP - General NURSE PRACTITIONER 12/15/24
--- OUTSIDE RECORDS SUMMARY | 2025-02-19 12:57 | XMS_ITS | Clinical Summary ---
Author Organization [facility] Address [address] [place] [address] Phone Care Team Providers Care Direct Sales Consultant Name Role Phone Austen Munoz MD Primary Care Provider + Lory Aguillon MD Unavailable Allergies No known active allergies Medications HYDROcodone-richy taminophen (NORCO) 5-325 mg per tabletIndicatio ns:Pain Take 1 tablet by mouth every 6 (six) hours as needed for pain 30 tablet 4 Active alendronate (FOSAMAX) 70 mg tablet TAKE 1 TABLET BY MOUTH EVERY 7 DAYS 12 tablet 3 5 Active alendronate (FOSAMAX) 70 mg tablet Take 1 tablet (70 mg total) by mouth every 7 days 12 tablet 3 4 01/30/20 25 Discontinued Active Problems Problem Noted Date Diagnosed Date [...] Immunization Administration Dates Next Due COVID-19 mRNA (Accelerate Mobile Apps) 0.3 m L (30 mcg) vaccine (12 [...] basal cell carcinoma Cancer, basal Cell; Comments: [facility] 05/30/2015 - Malignant neoplasm of female breast (HCC) Cancer, breast; Comments: [facility] 05/30/2015 - Spinal stenosis of lumbar region [...] on file Legal Sex Female 3:56 AM CONSTRUCTION TRADES CONTRACTOR Gender Identity Not on file Sexual Orientation Not on file Occupation Industry Job Start Date Job End Date retired Not on file Not on file Not on file Obstetrics History Last Filed Vital Signs Vital Sign Reading Time Taken Comments Blood Pressure 102/70 04/17/2024 10:03 AM CONSTRUCTION TRADES CONTRACTOR Pulse 100 04/17/2024 10:03 AM CONSTRUCTION TRADES CONTRACTOR Temperature 36.7 C (98 F) 07/29/2023 9:56 AM CDT Respiratory Rate 18 07/29/2023 3:00 PM CDT Oxygen Saturation 97% 04/17/2024 10:03 AM CONSTRUCTION TRADES CONTRACTOR Inhaled Oxygen Concentration - - Weight 49.4 kg (109 lb) 04/17/2024 10:03 AM CONSTRUCTION TRADES CONTRACTOR Height 157.5 cm (5' 2) 04/17/2024 10:03 AM CONSTRUCTION TRADES CONTRACTOR Body Mass Index 19.94 04/17/2024 10:03 AM CONSTRUCTION TRADES CONTRACTOR Plan of Treatment Health Maintenance Due Date Last Done Comments DTaP/Tdap/Td Vaccine (1 - Tdap) 1951 Zoster Vaccine (1 of 2) 12/09/1991 Covid-19 Vaccine (2024-2 6 season) 2025 01/27/2023, 02/19/2022, 02/24/2021, Additional history exists Influenza Vaccine (#1) 2025 , 01/27/2023, 02/19/2022, Additional history exists Depression Screening 04/17/2025 04/17/2024, 04/12/2023, 03/04/2023, Additional history exists Fall Risk Assessment 04/17/2025 04/17/2024, 04/12/2023, 03/04/2023, Additional history exists Well Visit 65+ 04/17/2025 04/17/2024, 2022, 04/09/2022, Additional history exists Osteoporosis Screening-Bone Density [...] Body N/A Radiographic Sindy ging Historical Provider IMMabel DXA PROCEDURES Final Result from Last 3 Months or Most Recently Relevant to Health Maintenance Insurance [facility] Member Subscriber Plan / Payer (Ef fective 2019-Present) Name:Arleen Hernandez Relation to Subscriber:Self Name:Arleen Hernandez Payer ID:[id number] (NAIC) Type:MEDICARE RISK OTHER Address: [address] [facility] [facility] Advance Directives For more information, please contact: [phone] Documents on File Type Date Recorded Patient Front Office Representative Expl anation ADVANCE DIRECTIVE 01/18/2017 Advance Di rective Checklist Care Teams Direct Sales Consultant Relationship Specialty Start Date End Date Austen Munoz MD [address], [place] [address] PCP - General 02/10/16 Lory Aguillon MD [address], [place] [address] Anesthesiologist Pain Management 02/04/22
--- OUTSIDE RECORDS SUMMARY | 2025-02-19 12:57 | XMS_ITS | Clinical Summary ---
Author Organization [facility] Address [address] [place] [address] Care Team Providers Care Advisor Advocate Angel Co Founder Name Role Phone Austen Munoz MD Primary Care Provider [phone] Edy Hart MD Unavailable [phone] Source Comments [facility],non-owned Affiliates and Associated Physician Practices is amultiple site organization consisting of ambulatory clinics and hospital sitesin [place], [place], [place] and [place]. This disclosure is being madepursuant to the Care Everywhere program and may not contain all information available regarding this patient. Last updated 18.[facility] Allergies No known active allergies Medications * Be aware that medications may not be up to date on this document. Alwaysverify current medications with the patient. vitamin D, ergocalciferol, (Drisdol) 1.25 MG (29922 UT) capsuleIndication s:Other osteoporosis without current pathological [...] 02/14/2020 Personal history of breast cancer 12/31/2010 Encounters Date Type Department Care Team Description 02/16/2025 Travel 11/21/2024 Lab Requisition [facility] - DermPath Lab [address] [place] [id number] Angie Gonzalez DO from Last 3 Months Immunizations Immunization Administration Dates Next Due INFLUENZA [...] on file Legal Sex Female 6:43 AM ENVELOPE STAMPING MACHINE OPERATOR Gender Identity Not on file Sexual Orientation Not on file Last Filed Vital Signs Vital Sign Reading Time Taken Comments Blood Pressure 110/64 05/28/2022 1:56 PM ENVELOPE STAMPING MACHINE OPERATOR Pulse - - Temperature - - Respiratory Rate - - Oxygen Saturation - - Inhaled Oxygen Concentration - - Weight 52.2 kg (115 lb) 06/24/2022 12:55 PM ENVELOPE STAMPING MACHINE OPERATOR Height 160 cm (5' 3) 06/24/2022 12:55 PM ENVELOPE STAMPING MACHINE OPERATOR Body Mass Index 20.37 06/24/2022 12:55 PM ENVELOPE STAMPING MACHINE OPERATOR Plan of Treatment Upcoming Encounters Date Type Department Care Team (Late st Contact Info) Description 03/01/2025 11:00 AM CDT Appointment [facility] Breast Care [address] [place] [address] [address] [place] [address] Health Maintenance Due Date Last Done Comments DTAP/TDAP/TD VACCINES (1 - Tdap) 1960 ZOSTER VACCINE (1 of 2) 12/09/1991 Respiratory Syncytial Virus (RSV) Vaccine Pt: or over 60 yrs (1 - 1-dose 75+ series) 2016 PNEUMOCOCCAL VACCINE 50+ (3 of 3 - PCV20 or PCV21) 03/08/2022 03/08/2017, 05/10/2006 DEPRESSION SCREENING 05/10/2024 05/28/2022, 04/24/20 MEDICARE AWV CALENDAR YEAR 2024 COVID-19 VACCINE ( season) 2025 01/29/2021, 09/08/2020, 08/12/2020, Additional history exists INFLUENZA VACCINE (#1) 2025 , 02/07/2019, 01/26/2018, Additional history exists BONE DENSITY TESTING Completed 04/30/2023, 01/29/20 20 HEPATITIS B VACCINE Aged Out No longe [...] Priority Date/Time Associated Diagnosis Comments DERMATOPATHOLOGY Routine 11/21/2024 3:04 PM CDT DEXA BONE DENSITY AXIAL SKELETON Routine 04/30/2023 1:02 PM ENVELOPE STAMPING MACHINE OPERATOR Age-related osteoporosis without current pathological fracture from Last 3 Months or Most Recently Relevant to Health Maintenance Results * DERMATOPATHOLOGY (11/21/2024 3:04 PM CDT) Case Report Dermatopathology Report Case: [id number] Authorizing Provider: Angie Gonzalez DO Collected: 11/21/2024 03:04 PM Ordering Location: [facility] - Received: 11/23/2024 08:52 AM DermPath Lab Pathologist: Anyi West MD Specimen: Skin, right forehead 2:26 PM CDT DERMATOPATHOLOGY LABORATORY Final Diagnosis Specimen A. 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 The specimen consists of a shave biopsy measuring 6x5x2 mm. Jar 0. 2:26 PM CDT DERMATOPATHOLOGY LABORATORY Microscopic Description Specimen A. SKIN, right forehead: Sections show a proliferation of basaloid and squamous keratinocytes that extends into the superficial dermis. There are interanastomosing cords of squamous keratinocytes, some of which terminate in larger rounded masses that contain small cornifying cysts. Some aggregates of peripherally palisaded basaloid cells are present at the ends of the aggregates as well. 2:26 PM CDT DERMATOPATHOLOGY LABORATORY Disclaimer An external and internal positive and negative controls are appropriate for the histochemical, immunohistochemical and immunofluorescence stain(s) in this case (if any), except where stated explicitly. The performance characteristics of the stain(s) cited in this report were developed and its performance characteristic determined by the Dermatopathology Laboratory at [facility], directed by Dr. Elli Greco. These tests need not be, and therefore are not, approved by the [place] Food and Drug Administration. The tests are used for clinical purposes. Billing Codes Specimen Charges Stain Charges 04562 1 2:26 PM CDT DERMATOPATHOLOGY LABORATORY Embedded Images 2:26 PM CDT DERMATOPATHOLOGY LABORATORY Pathology/Cytolo gy TISSUE SPECIMEN FROM SKIN / Unknown 11/21/2024 3:04 PM CDT 11/23/2024 8:52 AM CDT us Angie Gavi Gonzalez DO LAB - PATHOLOGY/CYTOLOGY ORDERABLES Final Result DERMATOPATHOLOGY LABORATORY [facility] Department of Dermatology [address] [place] [address], [facility] [phone] * DEXA BONE DENSITY AXIAL SKELETON (04/30/2023 1:02 PM ENVELOPE STAMPING MACHINE OPERATOR) Anatomical Region Laterality Modality Nuclear Medicine 04/30/2023 3:03 PM ENVELOPE STAMPING MACHINE OPERATOR Impressions 04/30/2023 3:05 PM ENVELOPE STAMPING MACHINE OPERATOR IMPRESSION: WHO category: Osteoporosis WORLD HEALTH ORGANIZATION DEFINITIONS NORMAL= T-Score at or above -1.0 SD OSTEOPENIA = T-Score between -1 and -2.5 SD OSTEOPOROSIS = T-Score at or below -2.5 SD > Interpreting Provider: Ro Barclay DO on 04/30/2023 3:05 PM Narrative 04/30/2023 3:05 PM ENVELOPE STAMPING MACHINE OPERATOR PROCEDURE: DEXA BONE DENSITY AXIAL SKELETON DATE/TIME [...] Most Recently Relevant to Health Maintenance Insurance [facility] MANAGED MEDICARE ADV MEDICARE Care Teams Advisor Advocate Angel Co Founder Relationship Specialty Start Date End Date Austen Munoz MD [address], [place] [phone] PCP - General 10/10/08 Edy Hart MD [address] [place] [address] Obstetrics and Gynecology 01/14/23
--- OUTSIDE RECORDS SUMMARY | 2025-02-19 12:57 | XMS_ITS | Encounter Summary ---
Author Organization [facility] Address [address] [place] [address] Care Team Providers Care Modeling Teacher Name Role Phone Austen Munoz MD Primary Care Provider [phone] Edy Hart MD Unavailable [phone] Encounter Details Date Type Department Care Team (Late Contact Info) Description 01/18/2019 Lab Requisition [facility] Care DermPath Lab [address] [facility] [place] [phone] Lance Silveira MD [address] [place] [address] Social History Tobacco Use Types Packs/Day Years Used Date Smoking Tobacco: Never Smokeless Tobacco: Never Alcohol Use Standard Drinks/Week Comments Yes 0 (1 standard drink = 0.6 oz pur e alcohol) social Comments No Sex and Gender Information Value Date Recorded Sex Assigned at Not on file Legal Sex Female 6:43 AM PARADI TENDER Gender Identity Not on file Sexual Orientation Not on file documented as of this encounter Plan of Treatment Upcoming Encounters Date Type Department Care Team (Late Contact Info) Description 03/01/2025 11:00 AM CDT Appointment [facility] Breast Care [address] [facility] [facility] [address] [place] [address] documented as of this encounter Procedures Procedure Name Priority Date/Time Associated Diagnosis Comments DERMATOPATHOLOGY Routine 01/17/2019 12:0 0 AM CDT documented in this encounter Results * DERMATOPATHOLOGY (01/17/2019 12:00 AM CDT) Case Report Dermatopathology Report Case: [id number] Authorizing Provider: Lance Silveira MD Collected: 01/17/2019 12:00 AM Ordering Location: [facility] DermPath Lab Received: 01/18/2019 12:53 PM [...] specimen consists of a punch excision measuring [id number], bisected. The epidermal surface consists of a centrally located [id number] papule. The margin is inked green. Jar [...] characteristic determined by the Dermatopathology Laboratory at [facility], directed by Dr. Elli Greco. These tests need not be, and therefore are not, approved by the [place] Food and Drug Administration. The tests are used for clinical purposes. Billing Codes Specimen Charges Stain Charges 18439 1 12:24 PM CDT DERMATOPATHOLOGY LABORATORY Embedded Images 12:24 PM CDT DERMATOPATHOLOGY LABORATORY Pathology/Cytolog y TISSUE SPECIMEN FROM SKIN / Unknown 01/17/2019 01/18/2019 12:53 PM CDT Lance Silveira MD LAB - PATHOLOGY/CYTOLOGY ORD ERABLES Final Result DERMATOPATHOLOGY LABORATORY [facility] - Department of Dermatology [facility] [facility], 5th Floor Lab [address] [phone] documented in this encounter Visit Diagnoses Not on filedocumented in this encounter Care Teams Modeling Teacher Relationship Specialty Start Date End Date Austen Munoz MD [address] [facility] [address], [place] [id number] PCP - General 10/10/08 Edy Hart MD [address] [facility] [address] [place] [phone] Obstetrics and Gynecology 01/14/23 documented as of this encounter
--- OUTSIDE RECORDS SUMMARY | 2025-02-19 12:57 | XMS_ITS | Encounter Summary ---
Author Organization [facility] Address [address] [place] [address] Care Team Providers Care Raw Scales Operator Name Role Phone Austen Munzo MD Primary Care Provider [phone] Edy Hart MD Unavailable [phone] Encounter Details Date Type Department Care Team (Late Contact Info) Description 04/06/2018 Lab Requisition [facility] Care DermPath Lab [address] [facility] [place] [phone] Lance Silveira MD [address] [place] [address] Social History Tobacco Use Types Packs/Day Years Used Date Smoking Tobacco: Never Smokeless Tobacco: Never Alcohol Use Standard Drinks/Week Comments Yes 0 (1 standard drink = 0.6 oz pur e alcohol) social Comments No Sex and Gender Information Value Date Recorded Sex Assigned at Not on file Legal Sex Female 6:43 AM DIRECTOR OF SPORTS PERFORMANCE Gender Identity Not on file Sexual Orientation Not on file documented as of this encounter Plan of Treatment Upcoming Encounters Date Type Department Care Team (Late Contact Info) Description 03/01/2025 11:00 AM CDT Appointment [facility] [address] [facility] [address] [place] [address] documented as of this encounter Procedures Procedure Name Priority Date/Time Associated Diagnosis Comments DERMATOPATHOLOGY Routine 04/05/2018 12:0 0 AM DIRECTOR OF SPORTS PERFORMANCE documented in this encounter Results * DERMATOPATHOLOGY (04/05/2018 12:00 AM DIRECTOR OF SPORTS PERFORMANCE) Case Report Dermatopathology Report Case: [id number] Authorizing Provider: Lance Silveira MD Collected: 04/05/2018 12:00 AM Pathologist: Bill Greco MD Received: 04/06/2018 11:38 AM Specimen: Skin, glabella 8 5:26 PM [facility] Final Diagnosis Specimen A. SKIN, glabella: BASAL CELL CARCINOMA, NODULAR TYPE (C44.319) 8 5:26 PM [facility] DERMAT[facility] at [address] DIRECTOR OF SPORTS PERFORMANCE Clinical History R/O BCC. 8 5:26 PM [facility] Gross Description Specimen A: Received is one formalin filled container labeled with the patient's name and designated glabella. The specimen consists of a shave biopsy measuring [id number]. Jar 0. 8 5:26 PM [facility] Microscopic Description Specimen A. SKIN, glabella: Within the dermis there are aggregates of basaloid cells with a high nuclear to cytoplasmic ratio and peripheral palisading. 8 5:26 PM [facility] Disclaimer An external and internal positive and negative controls are appropriate for the histochemical, immunohistochemical and immunofluorescence stain(s) in this case (if any), except where stated explicitly. The performance characteristics of the stain(s) cited in this report were developed and its performance characteristic determined by the Dermatopathology Laboratory at [facility]. These tests need not be, and therefore are not, approved by the [place] Food and Drug Administration. The tests are used for clinical purposes. Billing Codes Specimen Charges Stain Charges 27278 1 8 5:26 PM [facility] Embedded Images 8 5:26 PM [facility] Pathology/Cytolog y TISSUE SPECIMEN FROM SKIN / Unknown 04/05/2018 04/06/2018 11:38 AM DIRECTOR OF SPORTS PERFORMANCE Lance Silveira MD LAB - PATHOLOGY/CYTOLOGY ORD ERABLES Final Result DERMATOPATHOLOGY LABORATORY [facility] - Department of Dermatology [address] [facility], 5th [address] Lab [address] [place], [place] [id number] [place] [address] documented in this encounter Visit Diagnoses Not on filedocumented in this encounter Care Teams Raw Scales Operator Relationship Specialty Start Date End Date Austen Munoz MD [address] [place] [address] PCP - General 10/10/08 Edy Hart MD [address] [place] [address] Obstetrics and Gynecology 01/14/23 documented as of this encounter
--- OUTSIDE RECORDS SUMMARY | 2025-02-19 12:57 | XMS_ITS | Encounter Summary ---
Author Organization [facility] Address [address] [facility] [place] [address] Care Team Providers Care Program Production Specialist Name Role Phone Austen Munoz MD Primary Care Provider [phone] Edy Hart MD Unavailable [phone] Encounter Details Date Type Department Care Team (Late Contact Info) Description 11/21/2024 Lab Requisition [facility] - DermPath Lab [address] [facility] [place] [phone] Angie Gonzalez DO [address] [facility] [address] [place] [address] Social History Tobacco Use Types Packs/Day Years Used Date Smoking Tobacco: Never Smokeless Tobacco: Never Alcohol Use Standard Drinks/Week Comments Yes 0 (1 standard drink = 0.6 oz pur e alcohol) social PHQ-2 Answer Date Recorded PHQ2 TOTAL SCORE 0 05/28/2022 Comments No Sex and Gender Information Value Date Recorded Sex Assigned at Not on file Legal Sex Female 6:43 AM TOOLSMITH Gender Identity Not on file Sexual Orientation Not on file documented as of this encounter Plan of Treatment Upcoming Encounters Date Type Department Care Team (Late Contact Info) Description 03/01/2025 11:00 AM CDT Appointment [facility] [address] [facility] [address] [place] [address] documented as of this encounter Procedures Procedure Name Priority Date/Time Associated Diagnosis Comments DERMATOPATHOLOGY Routine 11/21/2024 3:04 PM CDT documented in this encounter Results * DERMATOPATHOLOGY (11/21/2024 3:04 PM CDT) Case Report Dermatopathology Report Case: [id number] Authorizing Provider: Angie Gonzalez DO Collected: 11/21/2024 03:04 PM Ordering Location: [facility] - Received: 11/23/2024 08:52 AM [...] characteristic determined by the Dermatopathology Laboratory at [facility], directed by Dr. Elli Greco. These tests need not be, and therefore are not, approved by the [place] Food and Drug Administration. The tests are used for clinical purposes. Billing Codes Specimen Charges Stain Charges 13147 1 07/18/202 5 2:26 PM CDT DERMATOPATHOLOGY LABORATORY Embedded Images 5 2:26 PM CDT DERMATOPATHOLOGY LABORATORY Pathology/Cytolo gy TISSUE SPECIMEN FROM SKIN / Unknown 11/21/2024 3:04 PM CDT 11/23/2024 8:52 AM CDT us Angie Gonzalez DO LAB - PATHOLOGY/CYTOLOGY ORDERABLES Final Result DERMATOPATHOLOGY LABORATORY [facility] - Department of Dermatology [facility] Special[facility] [address] [facility] 3rd [address] [phone] documented in this encounter Visit Diagnoses Not on filedocumented in this encounter Care Teams Program Production Specialist Relationship Specialty Start Date End Date Austen Munoz MD [address] [place] [phone] PCP - General 10/10/08 Edy Hart MD [address] [place] [address] Obstetrics and Gynecology 01/14/23 documented as of this encounter
--- OUTSIDE RECORDS SUMMARY | 2025-02-19 12:57 | XMS_ITS | Encounter Summary ---
Author Organization [facility] Address [address] [place] [address] Care Team Providers Care Hub Inventory Specialist Name Role Phone Austen Munoz MD Primary Care Provider + Lory Aguillon MD Unavailable Amanda Ponce MA Unavailable [phone] Reason for Visit * Reason Onset Date Comments Pre Arrival 03/09/2022 Encounter Details Date Type Department Care Team (Late st Contact Info) Description 03/09/2022 Telephone [facility] [address] [facility] 1st [place] [address] Cass Navarro, FABIO Pre Arrival [...] on file Legal Sex Female 3:56 AM CIRCULATION TENDER Gender Identity Not on file Sexual [...] on filedocumented in this encounter Care Teams Hub Inventory Specialist Relationship Specialty Start Date End Date Austen Munoz MD [address] [address] PCP - General 02/10/16 Lory Aguillon MD [address] [address] Anesthesiologist Pain Management 02/04/22 Amanda Ponce MA [address] [place] [address] [address] [place] [address] [employer] Business Services Representative 07/30/23 07/30/23 documented as of this encounter
--- OUTSIDE RECORDS SUMMARY | 2025-02-19 12:57 | XMS_ITS ---
Author Organization [facility] Address [address] [facility] [address] [place] [address] Phone Care Team Providers Care Control Clerk Name Role Phone Austen Munoz MD Primary [...]
[2025-02-19 13:00] LABS: Hematocrit 41.6 % (37.0-47.0); Hemoglobin 13.2 g/dL (12.0-15.0); Immature Granulocyte Percent A 0.4 % (0-0.5); Lymphocytes Absolute Auto 1.11 K/mm3 (0.9-3.2); Mean Corpuscular HGB Conc 31.7 g/dl (32-36); Mean Corpuscular Hemoglobin 29.9 pg (26-34); Mean Corpuscular Volume 94.1 fl (80-100); Nucleated Red Blood Cells Absolute Auto 0.000 K/mm3 (0.0-0.012); Nucleated Red Blood Cells Perc 0.0 % (0.0-0.2); Platelet Count Result 205 k/mm3 (150-375); Red Blood Count 4.42 M/mm3 (4.2-5.4); White Blood Count 5.1 K/mm3 (4.5-10.0)
[2025-02-19 13:09] LABS: Alanine Aminotransferase 16 U/L (6-35); Albumin Level 4.5 g/dL (3.5-5.1); Alkaline Phosphatase 69 U/L (38-126); Anion Gap 6 mmol/L (4-12); Aspartate Amino Transferase 37 U/L (14-36); Bilirubin,Total 0.8 mg/dL (0.2-1.3); Blood Urea Nitrogen 19 mg/dL (7-17); Calcium 9.0 mg/dL (8.4-10.2); Carbon Dioxide 30 mmol/L (22-30); Chloride 102 mmol/L (98-107); Cholesterol 240 mg/dL (0-200); Estimated Glomerular Filt Rate > 60; Glucose 91 mg/dL (65-110); HDL Direct 98 mg/dL; Potassium 4.5 mmol/L (3.4-5.0); Sodium 138 mmol/L (137-145); Total Protein 7.4 g/dL (6.3-8.2); Triglycerides 88 mg/dL (<150)
[2025-02-19 13:20] LABS: Parathyroid Intact 30.1 pg/mL (14.5-75.2)
[2025-02-19 13:44] LABS: Thyroid Stimulating Hormone 2.530 uIU/mL (0.465-4.680)
== END 2025-02-19 11:43 | disposition home or self-care (01) ==
LOC: ANHGOSHLAB 11:44
PROVIDERS: PCP Internal Medicine; Visit Provider Internal Medicine
DX: M81.0 Age-related osteoporosis without current pathological fracture (principal); Z13.29 Encounter for screening for other suspected endocrine disorder; Z13.0 Encounter for screening for diseases of the blood and blood-forming organs and certain disorders involving the immune mechanism; Z13.228 Encounter for screening for other metabolic disorders; I65.22 Occlusion and stenosis of left carotid artery; Z13.220 Encounter for screening for lipoid disorders; R49.0 Dysphonia
CPT/HCPCS: 36415; 80053; 80061; 82172; 82306; 83970; 84443; 85025

== ENCOUNTER 2025-02-27 13:16 | Outpatient (CLI) | payer MEDICARE, SELFPAY ==
--- NOTE | ~2025-02-27 | US_ITS ---
EXAMINATION: US carotid duplex BI DATE: 02/27/2025 14:12 INDICATION: Carotid stenosis TECHNIQUE: Grayscale, color Doppler, and pulsed Doppler images of the cervical carotid arteries were obtained. The degree of vessel stenosis is placed in one of the following categories: normal, <50%, 50-69%, >=70% but less than near- occlusion, near-occlusion, or total occlusion. Note that percent stenosis relative to normal distal artery lumen diameter is indirectly measured from velocity measurements as described by Elvis, et al. Radiology 2003; 229:340-346. Notes: Normal: Peak systolic velocity <125 centimeters/sec and no plaque <50%. Peak systolic velocity <125 (EDV <40; ICA/CCA PSV ratio <2.0; used these factors only a tandem lesions or low cardiac output or contralateral disease) 50-69 %: PSV 125-230 (EDV 40-100; ratio 2-4) >= 70% but less than near occlusion: PSV greater than 230 (EDV > 100; ratio> 4.0) Near Occlusion: PSV that is variable; markedly narrowed lumen Occlusion: Absent flow on color/spectral Doppler and no lumen on fernandez scale. COMPARISON: None. FINDINGS: RIGHT: The right common carotid artery (CCA) peak systolic velocity (PSV) is 94 cm/s. The right internal carotid artery (ICA) PSV is 95 cm/s. The right ICA end- diastolic velocity (EDV) is 14 cm/s. The right ICA/CCA PSV ratio is 1.5. The external carotid artery (ECA) PSV is 76 cm/s. There is antegrade flow in the right vertebral artery. LEFT: The left CCA PSV is 91 cm/s. The left ICA PSV is 102 cm/s. The left ICA EDV is 24 cm/s. The left ICA/CCA PSV ratio is 1.1. The ECA PSV is 74 cm/s. There is antegrade flow in the left vertebral artery. IMPRESSION: 1. Less than 50% stenosis in the right internal carotid artery by sonographic criteria. 2. Less than 50% stenosis in the left internal carotid artery by sonographic criteria. Reviewed, dictated and finalized at location O. IMPRESSION: 1. Less than 50% stenosis in the right internal carotid artery by sonographic frankie urias. 2. Less than 50% stenosis in the left internal carotid artery by sonographic jesus padilla.
== END 2025-02-27 13:17 | disposition home or self-care (01) ==
PROVIDERS: PCP Internal Medicine; Visit Provider Internal Medicine
DX: I65.23 Occlusion and stenosis of bilateral carotid arteries (principal)
CPT/HCPCS: 93880

== ENCOUNTER 2025-03-23 13:43 | Outpatient (CLI) | payer MEDICARE, SELFPAY ==
--- NOTE | ~2025-03-23 | DEXA_ITS ---
Bone Density Report Name: AME MCGARRY Age: 84 Sex: Female Ethnicity: White Date of : 1940 Indication: postmenopausal; screening for osteoporosis; cancer; Referring Provider: Mason Cardoso Study: Bone densitometry was performed. Exam Date: March 23, 2025 Accession number: [id number] Bone Density: Region BMD T-score Z-score Classification AP Spine(L1, L2, L3) 0.932 -0.8 1.9 Normal Femoral Neck (Left) 0.529 -2.9 -0.4 Osteoporosis Total Hip (Left) 0.543 -3.3 -1.0 Osteoporosis Femoral Neck (Right) 0.526 -2.9 -0.5 Osteoporosis Total Hip (Right) 0.605 -2.8 -0.5 Osteoporosis Total Hip Mean 0.574 -3.1 -0.8 Osteoporosis World Health Organization criteria for BMD impression classify patients as: Normal (T-score at or above -1.0), Osteopenia (T-score between -1.0 and -2.5), or Osteoporosis (T-score at or below -2.5). 10-year Fracture Risk: FRAX not reported because: Some T-score for Spine Total or Hip Total or Femoral Neck at or below -2.5 Clinical Information Provided by Patient: Has used the following medications: Fosamax (i.e. alendronate), Vitamin D Has the following medical conditions: Cancer, breast cancer Patient maximum height was 55 Menopause Age: 51 No regular weight bearing exercise Does not regularly consume dairy products Drinks caffeinated beverages Onset of menses at age 13 Number of children 2 Impression: The patient has osteoporosis, based on the Left Total Hip T-score. Discussion: INCREASED RISK OF FRACTURE. BONE DENSITY IS UNDESIRABLY LOW AT ONE OR MORE SKELETAL SITES, CONSISTENT WITH POSTMENOPAUSAL OSTEOPOROSIS. This patient's lowest T-score meets the World Health Organization's (WHO) criteria for osteoporosis at one or more sites (T-score -2.5 or below). In untreated patients, the risk of osteoporotic fracture increases approximately two-fold for each 1.0 SD decrease in T-score. Low bone density is not the only risk factor for fracture; also consider factors such as patient's age, frailty or poor health, risk of falling, risk of injury, previous osteoporotic fracture, family history of osteoporosis, cigarette smoking, low body weight, etc. Not everyone with low bone mineral density has osteoporosis; osteomalacia and other metabolic bone disorders should also be considered. Patients who have osteoporosis should be evaluated for specific diseases and conditions (secondary causes) that may cause or contribute to bone loss. The [place] [employer] Clinical Endocrinologists (AACE) and National Osteoporosis Foundation (NOF) recommend pharmacologic intervention for all postmenopausal women whose T-score is in this range. The patient should follow a healthful lifestyle (good nutrition with adequate calcium and vitamin D, and appropriate weight-bearing exercise). Follow-Up: Consider a repeat BMD and Vertebral Fracture Assessment (VFA) exam in 2 years or sooner if medically necessary, to reassess this patient's status. Reported by: PHILIP on 03/23/2025 2:13:00 PM. Reviewed, dictated and finalized at location A.
== END 2025-03-23 13:44 | disposition home or self-care (01) ==
PROVIDERS: PCP Internal Medicine; Visit Provider Internal Medicine
DX: M81.0 Age-related osteoporosis without current pathological fracture (principal)
CPT/HCPCS: 77080